=== PATIENT | female | born 1965 | race Caucasian/White ===

== ENCOUNTER → 2016-12-05 | Outpatient (CLI) | payer MEDICAID ==
[~2016-12-05] MED LIST: ATOR40TA78 PO; CHLO25TA PO; CHOL200024 PO; CIPR500T3 PO; CLON-364 PO; FERR325T20 PO; FLUO20CA8 PO; GABA100C8 PO; HYDR-3138 PO; LOSA100T6 PO; METR500T4 PO; POTA10CA PO
== END | disposition home or self-care (01) ==
LOC: CFH 08:32
PROVIDERS: ATTEND Genetic Counselor, MS
DX: Z12.31 Encounter for screening mammogram for malignant neoplasm of breast (principal)
CPT/HCPCS: G0202

== ENCOUNTER → 2017-02-18 | Outpatient (CLI) | payer MEDICAID ==
[~2017-02-18] MED LIST changes: +GABA-826 PO; -GABA100C8 PO
== END | disposition home or self-care (01) ==
LOC: CFH 08:15 → EDSTATUS 08:45
PROVIDERS: ATTEND Genetic Counselor, MS
DX: M72.2 Plantar fascial fibromatosis (principal); M25.572 Pain in left ankle and joints of left foot

== ENCOUNTER 2017-06-06 13:01 | Emergency (ER) | payer MEDICAID ==
[~2017-06-06] VITALS: Ht 162.6 cm; Wt 102.3 kg
[~2017-06-06 13:01] MED LIST changes: +FERR325T18 PO; -FERR325T20 PO; -HYDR-3138 PO; +HYDR-3237 PO; -METR500T4 PO; +METR500T8 PO
[2017-06-06] MEDS ORDERED: HYDROcodone/APAP 5/325 TABLET PO ONE (13:30)
[2017-06-06] MEDS ORDERED: ONDANSETRON ODT 4 MG PO ONE (13:30)
[2017-06-06] MEDS ORDERED: ATOR-2 PO (13:44)
[2017-06-06] MEDS ORDERED: HYDROcodone/APAP 5/325 TABLET ONE (13:46)
[2017-06-06] MEDS ORDERED: ONDANSETRON ODT 4 MG ONE (13:46)
[2017-06-06 15:32] VITALS: BP 119/64
== END 2017-06-06 15:45 | disposition home or self-care (01) ==
LOC: ED 15:36
DX: S00.03XA Contusion of scalp, initial encounter (principal); S30.0XXA Contusion of lower back and pelvis, initial encounter; S16.1XXA Strain of muscle, fascia and tendon at neck level, initial encounter; I10 Essential (primary) hypertension; W18.00XA Striking against unspecified object with subsequent fall, initial encounter; Y93.89 Activity, other specified; Y92.092 Bedroom in other non-institutional residence as the place of occurrence of the external cause; Y99.8 Other external cause status
CPT/HCPCS: 70450; 72125; 72131; 99284; Q0162

== ENCOUNTER → 2018-02-07 | Outpatient (CLI) | payer MEDICAID ==
[~2018-02-07] MED LIST changes: +ATOR-2 PO
== END ==
LOC: CFH 08:10
PROVIDERS: ATTEND Genetic Counselor, MS
DX: Z12.31 Encounter for screening mammogram for malignant neoplasm of breast (principal); M65.871 Other synovitis and tenosynovitis, right ankle and foot
CPT/HCPCS: 77063; 77067

== ENCOUNTER → 2018-12-17 | Outpatient (CLI) | payer MEDICAID ==
[~2018-12-17] MED LIST changes: -CLON-364 PO; +CLON0.5T11 PO; +LOSA100T14 PO; -LOSA100T6 PO; +METR-90 PO; -METR500T8 PO
== END | disposition home or self-care (01) ==
LOC: CFH 13:04
PROVIDERS: ATTEND Registered Nurse
DX: S13.150A Subluxation of C4/C5 cervical vertebrae, initial encounter (principal); M50.122 Cervical disc disorder at C5-C6 level with radiculopathy; M48.02 Spinal stenosis, cervical region; M51.17 Intervertebral disc disorders with radiculopathy, lumbosacral region; M43.16 Spondylolisthesis, lumbar region; M48.07 Spinal stenosis, lumbosacral region; M25.78 Osteophyte, vertebrae; X58.XXXA Exposure to other specified factors, initial encounter; Y93.89 Activity, other specified; Y92.89 Other specified places as the place of occurrence of the external cause; Y99.8 Other external cause status
CPT/HCPCS: 72050; 72110; 72141; 72148

== ENCOUNTER 2019-03-17 13:58 | Outpatient (CLI) | payer MEDICAID | END 2019-03-17 23:59 | disposition home or self-care (01) | LOC: CFH 13:58 | PROVIDERS: ATTEND Nurse Practitioner Critical Care Medicine | DX: M54.12 Radiculopathy, cervical region (principal); Z98.890 Other specified postprocedural states | CPT/HCPCS: 72040 ==

== ENCOUNTER 2019-06-10 07:51 | Outpatient (CLI) | payer MEDICAID | END 2019-06-10 23:59 | disposition home or self-care (01) | LOC: CFH 07:51 | PROVIDERS: ATTEND Genetic Counselor, MS | DX: Z12.31 Encounter for screening mammogram for malignant neoplasm of breast (principal); N64.89 Other specified disorders of breast | CPT/HCPCS: 77067 ==